=== PATIENT | female | born 1965 | race Caucasian/White ===

== ENCOUNTER 2016-12-20 11:28 | Outpatient (CLI) | payer OTHER ==
--- NOTE | 2016-12-20 14:47 | RAD ---
4 VIEWS OF LEFT KNEE: Date: 12/20/16 COMPARISON: None. HISTORY: Left knee pain for 1 week. FINDINGS: Four views of the left knee show the patient to be status post ACL repair of the knee. There is no e vidence of acute fracture or dislocation. A small knee effusion is seen. No degenerative changes ar e seen. IMPRESSION: Small knee effusion without acute osseous abnormality. POS: [facility]
== END 2016-12-20 11:29 | disposition home or self-care (01) ==
LOC: MADRAD 11:28
PROVIDERS: ATTEND Family Medicine
DX: M25.562 Pain in left knee (principal); M25.462 Effusion, left knee

== ENCOUNTER 2018-08-25 18:35 | Emergency (ER) | payer BC ==
[2018-08-25] MEDS ORDERED: Ondansetron PF 4 MG/2 ML Vial ONE (19:16)
[2018-08-25] MEDS ORDERED: Sodium Chloride 0.9% 1,000 ML ONE (19:16)
[2018-08-25] MEDS ORDERED: Loperamide HCl 2 MG CAP ONE (19:16)
[2018-08-25 19:21] LABS: #Eosinphils 0.2 thou/uL (0.0-0.7); #Lymphocytes 1.5 thou/uL (1.20-3.40); #Monocytes 0.9 thou/uL (0.11-0.59); #Neutrophils 12.2 thou/uL (1.40-6.50); %Basophils 0.3 % (0.0-1.0); %Eosinophils 1.2 % (0.0-10.0); %Lymphocytes 10.3 % (21.0-51.0); %Monocytes 5.8 % (0.0-10.0); %Neutrophils 82.4 % (42.0-75.0); Hemoglobin 13.9 g/dL (12.0-16.0); Mean Corpuscular HGB CONC 32.6 g/dL (32.0-36.0); Mean Corpuscular Hemoglobin 31.2 pg (27.0-31.0); Mean Corpuscular Volume 95.7 fL (78.0-98.0); Mean Platelet Volume 6.9 fL (7.4-10.4); Platelet Count 269 thou/uL (130-400); RBC Distribution Width 11.3 % (11.5-14.5); Red Blood Cell (RBC) Count 4.46 mill/uL (4.20-5.40); White Blood Cell (WBC) Count 14.8 thou/uL (4.8-10.8)
[2018-08-25 19:36] LABS: ALT (SGPT) 30 U/L (8-55); AST (SGOT) 19 U/L (5-34); Albumin 4.7 g/dL (3.5-5.0); Alkaline Phosphatase 86 U/L (40-150); Anion Gap 17 mmol/L (10-20); BUN (Urea Nitrogen) 17 mg/dL (7.0-18.7); Bilirubin, Total 0.5 mg/dL (0.2-1.2); Calc. Creatinine Clearance 0 mL/min (70-130); Carbon Dioxide 23 mmol/L (22-29); Chloride 105 mmol/L (98-107); Estimated GFR-MDRD 66; Globulin 2.7 g/dL (2.4-3.5); Glucose 151 mg/dL (70-105); Lipase 22 U/L (8-78); Potassium 3.7 mmol/L (3.5-5.1); Protein, Total 7.4 g/dL (6.0-8.3); Sodium 141 mmol/L (136-145)
== END 2018-08-25 21:28 | disposition home or self-care (01) ==
LOC: MADERS 18:35
DX: K52.9 Noninfective gastroenteritis and colitis, unspecified (principal); F32.9 Major depressive disorder, single episode, unspecified; Z79.899 Other long term (current) drug therapy
CPT/HCPCS: 80053; 83605; 83690; 85025; 96361; 96374; J2405; J7050